=== PATIENT | male | born 1950 | race Caucasian/White ===

== ENCOUNTER 2023-01-26 12:52 | Outpatient (CLI) | payer OTHER, SELFPAY ==
--- NOTE | 2023-01-26 13:00 | CRLHL7_ITS ---
For Patients: As a result of the Century Cures Act, medical imaging exams and procedure reports are released immediately into your electronic medical record. You may view this report before your referring provider. If you have questions, please contact your health care provider. INDICATION: Parkinsonism. TECHNIQUE: Brain MRI without contrast. The following sequences were obtained: Sagittal T1 weighted sequence. DWI and ADC mapping sequences. Axial FLAIR and MICHAELA T2 weighted sequences. Susceptibility or GRE sequence. COMPARISON: None. FINDINGS: No evidence of acute ischemia. No evidence of acute or chronic intracranial blood products. Scattered FLAIR hyperintensities within the supratentorial white matter and brainstem, typical for chronic microvascular ischemic changes. Mild generalized parenchymal volume loss. No mass effect or herniation. No hydrocephalus or extra-axial collections. The pituitary gland, parasellar structures and optic chiasm are normal. Posterior fossa is normal. All the major intracranial vascular structures demonstrate normal flow-related signal. The orbital contents are normal. No calvarial or skull base marrow replacing process. Mild ethmoid air cell mucosal thickening. Complete opacification of the right sphenoid sinus mucosal thickening or retention cysts. Less seen and sinus retention cyst as well. No extracranial soft tissue findings. IMPRESSION: 1. No acute infarction or other acute intracranial pathology. 2. Mild chronic microvascular ischemic changes. 3. Mild generalized parenchymal volume loss. Dictated by Isaiah Matos MD @ 01/26/2023 3:45:58 PM (Electronically Signed)
== END 2023-01-26 12:53 | disposition home or self-care (01) ==
PROVIDERS: Visit Provider Chiropractor
DX: G20.A1 Parkinson's disease without dyskinesia, without mention of fluctuations (principal); I67.82 Cerebral ischemia
CPT/HCPCS: 70551